=== PATIENT | female | born 1980 | race Caucasian/White ===

== ENCOUNTER → 2017-09-22 | Outpatient (CLI) | payer OTHER ==
[~2017-09-22] MED LIST: IOPAMIDOL 300 MG/ML 15ML VIAL IT ONE
--- NOTE | 2017-09-22 13:41 | Diagnostic Imaging Report ---
PROCEDURE:X-RAY HYSEROSALPINGOGRAM COMPARISON:None. INDICATIONS: Fertility issues, encounter for fertility testing TECHNIQUE: Informed consent was obtained. A sterile vaginal speculum was introduced and, following cleansing of the cervix with Betadine, a five [place] HSG balloon-tipped catheter was inserted into the endometrial cavity. 30 cc of Isovue 300 was injected and multiple images in the frontal and bilateral oblique projections were obtained. Fluoroscopy time: 4.1 minutes. Fluoroscopic dose: 26.2 mGy Total DAP: 6.476 Gy*cm2 FINDINGS: Backfiller view of the pelvis is unremarkable. ENDOMETRIAL CAVITY: A single cervix was identified to the left of midline. The uterus is oriented to the left. No intrauterine filling defects. FALLOPIAN TUBES: The right fallopian tube is visualized with some evidence of spillage into the peritoneum. The left fallopian tube is poorly visualized. OTHER: Negative. CONCLUSION: Nonvisualization of the left fallopian tube. Right fallopian tube is within normal limits. Dictated by: Shahab Ryan M.D. on 09/22/2017 at 13:41 Electronically approved by: Shahab Ryan M.D. on 09/22/2017 at 13:41
== END ==
LOC: DX 09:06
PROVIDERS: ATTEND Obstetrics & Gynecology Reproductive Endocrinology
DX: Z31.41 Encounter for fertility testing (principal)
CPT/HCPCS: 74740; 81025; Q9967